=== PATIENT | male | born 1995 | race African-American/Black ===

== ENCOUNTER 2021-09-07 18:04 | Emergency (ER) | payer SELFPAY ==
[2021-09-07] MEDS ORDERED: Acetaminophen 500 MG TAB ONE (20:15)
[2021-09-07] MEDS ORDERED: Ondansetron ODT 4 MG TAB ONE (20:15)
== END 2021-09-07 20:16 | disposition home or self-care (01) ==
LOC: CSHERS 18:04
DX: R11.2 Nausea with vomiting, unspecified (principal); F17.200 Nicotine dependence, unspecified, uncomplicated
CPT/HCPCS: 99283; Q0162